=== PATIENT | female | born 1985 | race Caucasian/White ===

== ENCOUNTER 2021-01-17 17:33 | Inpatient (IN) | payer OTHER ==
[2021-01-17 17:53] VITALS: BMI 31.1
[2021-01-17] MEDS ORDERED: Docusate 100 MG CAP PO PRN (18:23)
[2021-01-17] MEDS ORDERED: Promethazine HCl 25 MG/ML VIAL IM PRN (18:23)
[2021-01-17] MEDS ORDERED: hydrALAZINE 20 MG/ML VIAL SLOW IVP PRN (18:23)
[2021-01-17] MEDS ORDERED: Acetaminophen 500 MG TAB PO PRN (18:23)
[2021-01-17] MEDS ORDERED: Ondansetron PF 4 MG/2 ML Vial IVP PRN (18:23)
[2021-01-17] MEDS ORDERED: Lactated Ringer's 1,000 ML IV SCH ×2 (18:30)
[2021-01-17 19:42] LABS: Hemoglobin 12.3 g/dL (12.0-15.5); Mean Corpuscular Volume 91.2 fl (81.6-98.3); Mean Platelet Volume 11.7 fl (7.4-10.4); Platelet Count 181 10x3/uL (150-450); RBC Distribution Width 13.4 % (11.5-14.5); Red Blood Cell (RBC) Count 3.97 10x6/uL (3.90-5.03); White Blood Cell (WBC) Count 10.5 10x3/uL (3.5-10.5)
[2021-01-17 20:12] LABS: Hep B Surf Ag Non-Reactive S/CO (NonReactive)
[2021-01-17 20:21] LABS: HIV (1/2) Antibody/Antigen Non-Reactive (NonReactive); HIV 1/2 INDEX 0.07 S/CO (<1.00)
[2021-01-17 20:59] LABS: HBSAg Index 0.19 S/CO (0-0.99)
[2021-01-17 21:00] LABS: Amphetamine Detected (NotDetected); Barbiturates Screen Not Detected (NotDetected); Benzodiazepine Screen Not Detected (NotDetected); Cocaine Metabolite Screen Not Detected (NotDetected); Methadone Not Detected (NotDetected); Methamphetamine Detected (NotDetected); Opiate Screen Not Detected (NotDetected); Oxycodone Screen Not Detected (NotDetected); Phencyclidine (PCP) Not Detected (NotDetected); THC/Cannabinoid Screen Detected (NotDetected); Tricyclic Screen Not Detected (NotDetected)
[2021-01-17 21:30] LABS: Syphilis Antibody Nonreactive (Nonreactive); Syphilis Antibody Index 0.03 S/CO (<1.00 Non-Reactive)
[2021-01-18] MEDS ORDERED: Bicitra 30 ML UDCUP PO PRN (07:36)
[2021-01-18] MEDS ORDERED: Famotidine/PF 20 mg/2ml Vial SLOW IVP PRN (07:36)
[2021-01-18] MEDS ORDERED: CEFAZOLIN 2 GM in Premix Bag 1 BAG IVPB SCH ×2 (07:45→08:15)
[2021-01-18 08:02] LABS: SARS-CoV-2 NAA Rapid Test Not Detected (NotDetected)
[2021-01-18] MEDS ORDERED: Methylergonovine 0.2 MG/ML VIAL IM PRN (11:05)
[2021-01-18] MEDS ORDERED: Carboprost 250 MCG/ML AMP IM PRN (11:05)
[2021-01-18] MEDS ORDERED: Misoprostol 200 MCG TAB PR PRN (11:05)
[2021-01-18] MEDS ORDERED: NS w/ Oxytocin 30 units 500 ML IV PRN (11:08)
[2021-01-18] MEDS ORDERED: Phenylephrine 10 MG/ML VIAL ONE (11:22)
[2021-01-18] MEDS ORDERED: Ketorolac Tromethamine 30 MG/ML VIAL ONE (11:22)
[2021-01-18] MEDS ORDERED: Dexamethasone 4 mg/ml Vial ONE (11:22)
[2021-01-18] MEDS ORDERED: Oxytocin 10 UNITS/ML VIAL ONE (11:22)
[2021-01-18] MEDS ORDERED: Morphine PF 10 MG/10 ML VIAL ONE (11:22)
[2021-01-18] MEDS ORDERED: Ondansetron PF 4 MG/2 ML Vial ONE (11:22)
[2021-01-18 13:25] LABS: Critical Notified Whom: LABOR AND DELIVRY; pH (Cord, venous) 7.313 (7.250-7.350)
[2021-01-18 13:26] LABS: Critical Notified Whom: LABOR AND DELIVERY
[2021-01-18] MEDS ORDERED: Fentanyl 100 MCG/2 ML VIAL SLOW IVP PRN ×3 (14:32→14:35)
[2021-01-18] MEDS ORDERED: Promethazine HCl 25 MG SUPP PR PRN ×3 (14:32→14:35)
[2021-01-18] MEDS ORDERED: Ondansetron PF 4 MG/2 ML Vial IVP PRN ×4 (14:32→14:47)
[2021-01-18] MEDS ORDERED: Promethazine HCl 25 MG/ML VIAL IM PRN ×3 (14:32→14:35)
[2021-01-18] MEDS ORDERED: diphenhydrAMINE 50 MG/ML VIAL IVP PRN ×3 (14:32→14:35)
[2021-01-18] MEDS ORDERED: Ondansetron HCl/PF 4 MG/2 ML Vial IVP PRN ×3 (14:32→14:35)
[2021-01-18] MEDS ORDERED: Meperidine HCl/PF 25 MG/ML VIAL SLOW IVP PRN ×3 (14:32→14:35)
[2021-01-18] MEDS ORDERED: Naloxone HCl 0.4 mg/ml Vial IV PRN ×3 (14:32→14:35)
[2021-01-18] MEDS ORDERED: Naloxone HCl 0.4 mg/ml Vial IVP PRN ×6 (14:32→14:35)
[2021-01-18] MEDS ORDERED: Hydrocerin (Eucerin) Cream 120 gm Jar TOP PRN ×3 (14:32→14:35)
[2021-01-18] MEDS ORDERED: Ketorolac Tromethamine 30 MG/ML VIAL IVP PRN ×3 (14:32→14:35)
[2021-01-18] MEDS ORDERED: Ketorolac Tromethamine 30 MG/ML VIAL IVP SCH ×3 (14:45)
[2021-01-18] MEDS ORDERED: Communication Order-Pharmacy FS SCH ×3 (14:45)
[2021-01-18] MEDS ORDERED: HYDROcodone/Acetaminophen 5/325 mg Tablet PO PRN (14:47)
[2021-01-18] MEDS ORDERED: Simethicone Chewable 80 MG TAB PO PRN (14:47)
[2021-01-18] MEDS ORDERED: diphenhydrAMINE 25 MG CAP PO PRN (14:47)
[2021-01-18] MEDS ORDERED: hydrALAZINE 20 MG/ML VIAL SLOW IVP PRN (14:47)
[2021-01-18] MEDS ORDERED: Acetaminophen 325 MG TAB PO PRN (14:47)
[2021-01-18] MEDS ORDERED: Bisacodyl 10 MG SUPP PR PRN (14:47)
[2021-01-18] MEDS ORDERED: NS w/ Oxytocin 30 units 500 ML ONE (15:15)
[2021-01-18] MEDS: Ferrous Sulfate 325 MG TAB PO SCH (20:59)
[2021-01-18] MEDS: Docusate Calcium (SURFAK) 240 MG CAP PO SCH (20:59)
[2021-01-19 06:21] LABS: Hemoglobin 10.9 g/dL (12.0-15.5); Mean Corpuscular HGB CONC 33.2 g/dL (32.0-36.0); Mean Corpuscular Hemoglobin 31.7 pg (27.0-33.0); Mean Corpuscular Volume 95.3 fl (81.6-98.3); Mean Platelet Volume 12.1 fl (7.4-10.4); Platelet Count 183 10x3/uL (150-450); RBC Distribution Width 13.6 % (11.5-14.5); Red Blood Cell (RBC) Count 3.44 10x6/uL (3.90-5.03); White Blood Cell (WBC) Count 13.1 10x3/uL (3.5-10.5)
[2021-01-19] MEDS: HYDROcodone/Acetaminophen 5/325 mg Tablet PO PRN ×2 (06:45→13:59)
[2021-01-19] MEDS ORDERED: Acetaminophen 325 MG TAB PO PRN (06:57)
[2021-01-19] MEDS: Lactated Ringer's 1,000 ML IV SCH ×4 (07:38→23:02)
[2021-01-19] MEDS: Ferrous Sulfate 325 MG TAB PO SCH ×2 (08:12→21:48)
[2021-01-19] MEDS: Docusate Calcium (SURFAK) 240 MG CAP PO SCH ×2 (08:16→21:47)
[2021-01-19] MEDS: Prenatal Vitamin 1 TAB PO SCH (08:16)
[2021-01-19] MEDS: Aspirin Chewable 81 MG TAB PO SCH (08:17)
[2021-01-19] MEDS: hydrOXYzine Pamoate 25 mg Capsule PO SCH (08:17)
[2021-01-19] MEDS ORDERED: Bupropion 150 MG SR TAB PO SCH (09:00)
[2021-01-19] MEDS: Ibuprofen 800 MG TAB PO SCH ×2 (13:58→21:48)
[2021-01-19] MEDS ORDERED: Boostrix 0.5 ML (Tdap) VIAL IM ONE (14:47)
[2021-01-19] MEDS ORDERED: Varicella virus, LIVE 0.5 ML VIAL SC ONE (14:47)
[2021-01-19] MEDS ORDERED: Measles/Mumps/Rubella 10 MCG/0.5 ML VIAL SC ONE (14:47)
[2021-01-20] MEDS: Ibuprofen 800 MG TAB PO SCH (05:08)
[2021-01-20] MEDS: Lactated Ringer's 1,000 ML IV SCH (06:44)
[2021-01-20] MEDS: Ferrous Sulfate 325 MG TAB PO SCH (07:15)
[2021-01-20 07:53] VITALS: BP 118/55; TEMP 98
[2021-01-20] MEDS: Prenatal Vitamin 1 TAB PO SCH (08:40)
[2021-01-20] MEDS: hydrOXYzine Pamoate 25 mg Capsule PO SCH (08:40)
[2021-01-20] MEDS: Docusate Calcium (SURFAK) 240 MG CAP PO SCH (08:40)
[2021-01-20] MEDS: Aspirin Chewable 81 MG TAB PO SCH (08:40)
[2021-01-20] MEDS ORDERED: Bupropion 150 MG XL TAB PO SCH (09:00)
== END 2021-01-20 10:00 | disposition home or self-care (01) | DRG 784 ==
LOC: CSHLD/OP 17:33 → CSHLD 01-18 09:40 → CSHPP 01-18 15:50
PROVIDERS: ADMIT Obstetrics & Gynecology; ATTEND Obstetrics & Gynecology
PROC: 10D00Z1 Extraction of Products of Conception, Low, Open Approach (ICD-10-PCS; principal; 2021-01-18)
PROC: 0UB70ZZ Excision of Bilateral Fallopian Tubes, Open Approach (ICD-10-PCS; 2021-01-18)
DX: O41.03X0 Oligohydramnios, third trimester, not applicable or unspecified (principal); O99.324 Drug use complicating childbirth; O34.211 Maternal care for low transverse scar from previous cesarean delivery; Z37.0 Single live birth; Z3A.37 37 weeks gestation of pregnancy; Z80.3 Family history of malignant neoplasm of breast; F15.10 Other stimulant abuse, uncomplicated; Z91.19 Patient's noncompliance with other medical treatment and regimen; F17.210 Nicotine dependence, cigarettes, uncomplicated; O99.334 Smoking (tobacco) complicating childbirth; F12.10 Cannabis abuse, uncomplicated; F32.A Depression, unspecified; O99.344 Other mental disorders complicating childbirth; Z79.82 Long term (current) use of aspirin; Z79.899 Other long term (current) drug therapy; Z20.822 Contact with and (suspected) exposure to COVID-19
CPT/HCPCS: 36415; 51702; 76815; 80306; 82805; 85027; 86780; 86850; 86900; 86901; 87340; 87389; 88302; 99285; J0690; J1100; J1885; J2274; J2370; J2405; J2590; Q0177; S0028; U0002